=== PATIENT | male | born 1935 | race Caucasian/White ===

== ENCOUNTER 2018-02-27 14:40 | Outpatient (CLI) | payer MEDICARE, OTHER | END 2018-02-27 14:41 | disposition critical access hospital (66) | LOC: EMS 14:40 | PROVIDERS: ATTEND Surgery | DX: R53.1 Weakness (principal); R11.10 Vomiting, unspecified | CPT/HCPCS: A0425; A0427 ==

== ENCOUNTER 2018-02-27 15:00 | Inpatient (IN) | payer MEDICARE, OTHER ==
[2018-02-27 16:06] LABS: BASOPHILS % (AUTO) 0.3 %; EOSINOPHILS % (AUTO) 0.1 %; HGB - HEMOGLOBIN 13.9 g/dL (14.0-18.0); LYMPHOCYTES # (AUTO) 0.4 10^3/uL (1.5-3.5); LYMPHOCYTES % (AUTO) 5.8 %; MEAN CORPUSCULAR HEMOGLOBIN 26.2 pg (27.0-31.0); MEAN CORPUSCULAR HGB CONC 33.4 g/dL (32.0-36.0); MEAN CORPUSCULAR VOLUME 78.4 fL (80.0-94.0); MEAN PLATELET VOLUME 7.4 fL (7.4-11.4); MONOCYTES # (AUTO) 0.9 10^3/uL (0.0-1.0); NEUTROPHILS # (AUTO) 6.1 10^3/uL (1.5-6.6); NEUTROPHILS % (AUTO) 81.8 %; PLT - PLATELET COUNT 422 10^3/uL (130-450); RED BLOOD COUNT 5.32 10^6/uL (4.70-6.10); WHITE BLOOD COUNT 7.5 x10^3/uL (4.8-10.8)
--- NOTE | 2018-02-27 16:10 | ED Physician Documentation ---
History of Present Illness - Stated complaint Stated Complaint: DIZZY WEAK - Chief complaint Chief Complaint: General - History obtained from History obtained from: Patient, Family, Other (records from [facility]) - History of Present Illness Timing: Other (This is an 82-year-old gentleman with history of heart failure and paroxysmal atrial fibrillation on Eliquis. He was hospitalized for 4 days and released on February 22 at [facility] for heart failure and then sounding like acute kidney injury so he was taken off of his diuretics. Over the last 4 days he has been progressively weak with difficulty swallowing his pills, he feels like his throat is not working right and abdominal distention. He also has a cough.) Review of Systems Ten Systems: 10 systems reviewed and negative Constitutional: reports: Fatigue. denies: Fever, Chills Cardiac: reports: Pedal edema. denies: Chest pain / pressure, Palpitations, Calf pain Respiratory: reports: Dyspnea, Cough. denies: Hemoptysis, Wheezing PD PAST MEDICAL HISTORY - Past Medical History Past Medical History: Yes Cardiovascular: None, Congestive heart failure, Hypertension, High cholesterol, Atrial fibrillation Respiratory: Sleep apnea, CPAP use Neuro: None, Other Endocrine/Autoimmune: HyPOthyroidism GI: None : None HEENT: Other Psych: None Musculoskeletal: None Derm: None Other Past Medical History: cataracts - Past Surgical History Past Surgical History: Yes Ortho: Shoulder arthroplasty HEENT: Tonsil/Adenoidectomy - Present Medications Home Medications: Ambulatory Orders Medication Instructions Recorded Confirmed Atorvastatin Calcium [Lipitor] 1 tab PO DAILY 07/25/14 07/25/14 Levothyroxine [Synthroid] 1 tab PO DAILY 07/25/14 07/25/14 Apixaban [Eliquis] 02/27/18 Metoprolol Succinate [Toprol Xl] 02/27/18 Promethazine [Phenergan] 02/27/18 Sennosides/Docusate Sodium [Colace 02/27/18 2-in-1 Tablet] - Allergies Allergies/Adverse Reactions: Allergies Allergy/AdvReac Type Severity Reaction Status Date / Time No Known Drug Allergies Allergy Verified 02/27/18 15:11 - Social History Does the pt smoke?: No Smoking Status: Never smoker Does the pt drink ETOH?: Yes Does the pt have substance abuse?: No PD ED PE NORMAL - Vitals Vital signs reviewed: Yes - General General: Alert and oriented X 3, No acute distress - HEENT HEENT: PERRL, EOMI, Other (He has oral thrush) - Neck Neck: Supple, no meningeal sign, No bony TTP - Cardiac Cardiac: RRR, No murmur - Respiratory Respiratory: No respiratory distress, Clear bilaterally - Abdomen Abdomen: Other (He is distended soft dull abdomen and bedside ultrasound confirms massive ascites.) - Derm Derm: Normal color, Warm and dry - Extremities Extremities: Other (Moderate bilateral pitting pedal edema without tenderness.) - Neuro Neuro: Alert and oriented X 3, Normal speech - Psych Psych: Normal mood, Normal affect Results - Vitals Vitals: Vital Signs - 24 hr 02/27/18 02/27/18 02/27/18 15:07 16:22 18:30 Temperature 36.8 C Heart Rate 87 89 92 Respiratory 23 24 24 Rate Blood Pressure 160/52 H 113/65 115/68 O2 Saturation 95 93 94 Oxygen O2 Source Room air - EKG (time done) 1508 Rate: Rate (enter#) (87) Rhythm: NSR (with PVCs) [place]: Normal Intervals: Normal MI QRS: Normal, Low voltage Ischemia: Normal ST segments Computer interpretation: Agree with computer - Labs Labs: Laboratory Tests 02/27/18 02/27/18 02/27/18 15:28 15:56 15:56 WBC 7.5 RBC 5.32 Hgb 13.9 L Hct 41.7 L MCV 78.4 L MCH 26.2 L MCHC 33.4 RDW 14.0 Plt Count 422 MPV 7.4 Neut # 6.1 Lymph # 0.4 L [place] # 0.9 Eos # 0.0 Baso # 0.0 Absolute Nucleated RBC 0.00 Nucleated RBC % 0.0 Manual Slide Review Indicated WBC Morphology NORMAL APPEARANCE Platelet Estimate NORMAL (130-450,000) Platelet Morphology PLATELET CLUMPING RBC Morph Micro Appear NORMAL APPEARANCE Sodium 127 L Potassium 4.9 Chloride 94 L Carbon Dioxide 20 L Anion Gap 13.0 BUN 50 H Creatinine 1.0 Estimated GFR (MDRD) 71 L Glucose 97 Calcium 10.2 Total Bilirubin 0.7 AST 24 ALT 15 Alkaline Phosphatase 54 Troponin I B-Natriuretic Peptide 33 Total Protein 5.8 L Albumin 3.0 L Globulin 2.8 Albumin/Globulin Ratio 1.1 Lipase 17 L Urine Color Urine Clarity Urine pH Ur Specific Warren Urine Protein Urine Glucose (UA) Urine Ketones Urine Occult Blood Urine Nitrite Urine Bilirubin Urine Urobilinogen Ur Leukocyte Esterase Urine RBC Urine WBC Ur Squamous Epith Cells Urine Bacteria Ur Microscopic Review Fluid Source Fluid Color Fluid Clarity Fluid WBC Fluid RBC Fluid Neutrophils % Fluid Lymphocytes % Fluid Monocytes % Fluid Eosinophils % Fld Mesothelial Cell % Fluid Other Cells % 02/27/18 02/27/18 02/27/18 15:56 16:10 16:55 WBC RBC Hgb Hct MCV MCH MCHC RDW Plt Count MPV Neut # Lymph # [place] # Eos # Baso # Absolute Nucleated RBC Nucleated RBC % Manual Slide Review WBC Morphology Platelet Estimate Platelet Morphology RBC Morph Micro Appear Sodium Potassium Chloride Carbon Dioxide Anion Gap BUN Creatinine Estimated GFR (MDRD) Glucose Calcium Total Bilirubin AST ALT Alkaline Phosphatase Troponin I < 0.04 B-Natriuretic Peptide Total Protein Albumin Globulin Albumin/Globulin Ratio Lipase Urine Color YELLOW Urine Clarity CLEAR Urine pH 6.0 Ur Specific Warren >=1.030 H Urine Protein NEGATIVE Urine Glucose (UA) NEGATIVE Urine Ketones NEGATIVE Urine Occult Blood MODERATE H Urine Nitrite NEGATIVE Urine Bilirubin NEGATIVE Urine Urobilinogen 0.2 (NORMAL) Ur Leukocyte Esterase NEGATIVE Urine RBC 0-5 Urine WBC 0-3 Ur Squamous Epith Cells NONE SEEN Urine Bacteria None Seen Ur Microscopic Review INDICATED Fluid Source PERITONEAL Fluid Color YELLOW Fluid Clarity CLOUDY Fluid WBC 2735 Fluid RBC 64803 Fluid Neutrophils % 0 Fluid Lymphocytes % 16 Fluid Monocytes % 2 Fluid Eosinophils % 1 Fld Mesothelial Cell % 0 Fluid Other Cells % 81 - Rads (name of study) CT A/P Radiology: EMP read contemporaneously (1. There are extensive peritoneal implants with large ascites. There is ill-defined soft tissue density within the upper abdomen, retroperitoneum, pelvis, and presacral region. Findings are consistent with extensive metastatic disease. 2. There are discrete enlarged subcarinal, epicardiac, and retroperitoneal lymph nodes. 3. There is bilateral mild hydronephrosis and hydroureter. This likely reflects some element of ) Procedures - Paracentesis Preparation: Consent obtained, Ultrasound guidance, Sterile prep and drape Location: RLQ Technique: Other (I did not want to do a full therapeutic paracentesis because he is anticoagulated, the right lower quadrant was prepped and he was infiltrated with lidocaine with epinephrine and then using a simply is 18-gauge needle 40 mL of ascitic fluid was aspirated and sent for cytology, cell counts and other studies.) Aftercare: No complications PD MEDICAL DECISION MAKING - ED course ED course: 82-year-old gentleman presents with generalized weakness and shortness of breath , this is just 4 days after discharge from [facility] for presumed CHF with aggressive diuresis. On examination here he does not seem to be in heart failure but he does have significant ascites, this is concerning for metastatic disease. I consider doing a diagnostic/therapeutic paracentesis, but he is therapeutically anticoagulated so a similar approach was done with a small needle to do a diagnostic paracentesis only. CT results as shown and this was shared with the family. I called Dr. Andrade here for admission given that he is generally weak but she wants me to talk to an oncologist first to see if he should be transferred for an aggressive inpatient workup. I spoke with Dr Larry cedillo [place] who did not feel he needed urgent transfer. Departure - Departure Disposition: 66 [facility] DC/Xfer Clinical Impression: Metastatic disease, Weakness, Adequate anticoagulation on anticoagulant therapy Condition: Serious
[2018-02-27] MEDS ORDERED: LIDOCAINE 1%-EPI 1:100000 20 ML MDV SUBQ STA (16:12)
[2018-02-27 16:13] LABS: ALBUMIN/GLOBULIN RATIO 1.1 (1.0-2.2); BILIRUBIN,TOTAL 0.7 mg/dL (0.2-1.0); CALCIUM 10.2 mg/dL (8.5-10.3); TOTAL PROTEIN 5.8 g/dL (6.7-8.2)
[2018-02-27 16:21] LABS: PLATELET ESTIMATE, MANUAL NORMAL (130-450,000) (NORMAL); PLATELET MORPHOLOGY PLATELET CLUMPING (NORMAL); RBC MORPHOLOGY (MULTIPLE) NORMAL APPEARANCE (NORMAL)
[2018-02-27] MEDS ORDERED: IOPAMIDOL-300 100 ML VIAL ONE (16:25)
[2018-02-27 16:26] LABS: BILIRUBIN,URINE NEGATIVE (NEGATIVE); GLUCOSE, URINE (UA) NEGATIVE (NEGATIVE); KETONES,URINE (UA) NEGATIVE (NEGATIVE); LEUKOCYTE ESTERASE, URINE NEGATIVE (NEGATIVE); NITRITE,URINE NEGATIVE (NEGATIVE); OCCULT BLOOD,URINE MODERATE (NEGATIVE); PROTEIN,URINE NEGATIVE (NEGATIVE); UROBILINOGEN,URINE 0.2 (NORMAL) E.U./dL (NORMAL)
--- NOTE | 2018-02-27 16:31 | XRAY Preliminary Report ---
Exam: XR CHEST 1 VIEW X-RAY IMPRESSION: Normal single view chest. [facility] SITE ID: [id number]
--- NOTE | 2018-02-27 16:31 | XRAY Report ---
EXAM: CHEST RADIOGRAPHY EXAM DATE: 02/27/2018 04:07 PM. CLINICAL HISTORY: Dyspnea. COMPARISON: 10/26/2017 chest x-ray. TECHNIQUE: 1 view. FINDINGS: Lungs/Pleura: No focal opacities evident. No pleural effusion. No pneumothorax. Mediastinum: Within exam limitations, the cardiomediastinal contour is normal. Other: None. IMPRESSION: Normal single view chest. [facility] Referring Provider Line: [phone] SITE ID: [id number]
[2018-02-27 16:33] LABS: CLARITY,URINE CLEAR (CLEAR)
[2018-02-27 16:36] LABS: RBC,URINE 0-5 /HPF (0-5); SQUAMOUS EPITHELIAL CELL,UR NONE SEEN (<= Few)
[2018-02-27 16:37] LABS: BACTERIA,URINE None Seen /HPF (None Seen)
--- NOTE | 2018-02-27 17:11 | CT Report ---
EXAM: CT ABDOMEN AND PELVIS EXAM DATE: 02/27/2018 04:51 PM. CLINICAL HISTORY: Abdominal pain COMPARISONS: None. TECHNIQUE: Routine helical CT imaging was performed through the abdomen and pelvis. IV contrast: ISOV UE 300 100mL. Enteric contrast: No. Reconstructions: Coronal and sagittal. In accordance with CT protocol optimization, one or more of the following dose reduction techniques w ere utilized for this exam: automated exposure control, adjustment of mA and/or KV based on patient s ize, or use of iterative reconstructive technique. FINDINGS: Lung Bases: There are enlarged subcarinal and pericardiac lymph nodes. Liver: Normal. No masses. Gallbladder/Bile Ducts: Unremarkable. Spleen: Normal. Pancreas: Normal. Adrenal Glands: Normal. Kidneys: There is bilateral hydronephrosis and urothelial enhancement. There is perinephric stranding . Peritoneal Cavity/Bowel: There is large volume ascites. Uterus thick-walled peripheral enhancement. T here is diffuse nodularity of the mesentery. There is ill-defined confluent retroperitoneal soft tiss ue density which extends into the pelvis. No intraperitoneal free air. No evidence of bowel obstructi on. There is colonic diverticulosis. Pelvic Organs: The urinary bladder demonstrates marked wall thickening. Vasculature: There are atheromatous calcifications of the aorta. No acute vascular abnormalities are seen. Bones: No significant abnormality. Other: None. IMPRESSION: 1. There are extensive peritoneal implants with large ascites. There is ill-defined soft tissue densi ty within the upper abdomen, retroperitoneum, pelvis, and presacral region. Findings are consistent w ith extensive metastatic disease. 2. There are discrete enlarged subcarinal, epicardiac, and retroperitoneal lymph nodes. 3. There is bilateral mild hydronephrosis and hydroureter. This likely reflects some element of obstr uction secondary to the retroperitoneal soft tissue density. 4. There is marked irregular urinary bladder wall thickening. 5. There is no evidence of bowel obstruction. There is colonic diverticulosis. There is no evidence o f intraperitoneal free air. [facility] Referring Provider Line: [phone] SITE ID: [id number]
[2018-02-27 17:21] LABS: BF COLOR YELLOW; BF SOURCE PERITONEAL; CC,BF RBC 10852 /mm^3
[2018-02-27] MEDS ORDERED: IOPAMIDOL-300 100 ML VIAL IVP ONE (17:21)
[2018-02-27] MEDS ORDERED: NYSTATIN 500000 UNITS/5 ML UDC PO STA (17:53)
[2018-02-27 17:55] LABS: EOSINOPHILS %,BODY FLUID 1 %; LYMPHOCYTES %,BODY FLUID 16; MONOCYTES %,BODY FLUID 2 %
[2018-02-27 18:11] LABS: MESOTHELIAL %, BF 0 %
[2018-02-27] MEDS ORDERED: oxyCODONE 5 MG TABLET PO PRN ×2 (19:48)
[2018-02-27] MEDS ORDERED: PROCHLORPERAZINE 10 MG/2 ML VIAL IVP PRN (19:48)
[2018-02-27] MEDS ORDERED: SODIUM CHLORIDE FLUSH 0.9% 10 ML SYRINGE IVP PRN (19:48)
[2018-02-27] MEDS ORDERED: ONDANSETRON 4 MG/2 ML VIAL IVP PRN (19:48)
[2018-02-27] MEDS ORDERED: PROMETHAZINE 25 MG/1 ML VIAL IM PRN (19:48)
[2018-02-27] MEDS ORDERED: ACETAMINOPHEN 325 MG TABLET PO PRN (19:48)
[2018-02-27] MEDS ORDERED: ZOLPIDEM 5 MG TABLET PO PRN (19:48)
[2018-02-27] MEDS: SODIUM CHLORIDE 0.9% 1,000 ML IV SCH (21:48)
--- NOTE | 2018-02-27 23:11 | HISTORY & PHYSICAL EXAMINATION ---
Chief Complaint - Chief Complaint Chief Complaint: Nausea, vomiting and generalized weakness History of Present Illness - Admitted From Admitted From:: Emergency department - History Obtained From Records Reviewed: Yes History obtained from: Patient, patient's and patient's daughter Exam Limitations: Patient is extremely weak barely able to sit up for lung exam - History of Present Illness HPI Comment/Other: Patient is an 82-year-old gentleman with a past medical history significant for congestive heart failure with an ejection fraction of 55%, atrial fibrillation on Eliquis, hypothyroidism, hyperlipidemia, hypertension and history of prostate cancer treated many years ago who presented to the emergency department with a chief complaint of generalized weakness, nausea and vomiting. The patient and his family state that the patient was recently admitted at [facility] from 02/19/2018 until 02/22/2018. The patient presented there with 1 week history of worsening generalized weakness. The family reported to the emergency department that until recently the patient had been very highly functioning and able to do multiple chores around the house and assist with his with several duties. Around September 2017 the patient took a trip to [place] and shortly afterwards was noted to have fatigue and increased weakness. Approximately 2 weeks ago patient fell at home and was taken to the emergency department where several x-rays were completed but found to be negative. The patient was also seen in outpatient cardiology on 02/[address] Ghanshyam Mcdonald and at that appointment he was changed from carvedilol to metoprolol and his dose of spironolactone was decreased. The patient reported swelling of his lower extremities and a feeling of heaviness associated with walking. The patient's family also stated that the patient has had poor appetite and felt as though his food is getting stuck in his throat. He has also noticed that he has had increasing abdominal distention but has not had any abdominal pain. The patient also has had constipation but not noticed any change in the caliber of his stools. He is also denied any blood in his stools. At [facility] the patient was initially treated for volume depletion and given IV hydration. The patient's Lasix and spironolactone were held. The patient was worked up for his constipation and had a normal abdominal x-ray with no evidence of obstruction. The patient had been placed on a bowel regimen and did have a bowel movement prior to being discharged. The patient also appeared to have no nausea or vomiting and was able to tolerate food prior to discharge. The patient was sent home with assistance and outpatient PT. The patient was told to continue to hold his Lasix and spironolactone. After discharge from [facility] just 3 days ago the patient has had a continued decline. According to the family the patient has had increased generalized weakness and lethargy. They state that he continues to have poor appetite and has not been able to keep anything down. They state that he continues to have nausea and has vomited. They also state that the patient has noticed that he has had increased abdominal distention and increasing lower extremity edema. The patient denies having any worsening shortness of breath but feels extremely fatigued and today was so weak that he could not even stand or get up out of bed. The patient's family finally decided to bring him back to the emergency department this time they brought him to [facility]. The patient denies any headaches, blurred vision, runny nose, cough, fevers, chills, chest pain, abdominal pain, diarrhea, urinary urgency, urinary frequency , dysuria, joint pain, muscle aches, joint swelling, back pain, neck stiffness, skin changes, rash, hair loss, polyuria, polydipsia, recent unintentional weight loss, black or bloody stools or any focal neurologic deficits. On presentation to the emergency department the patient was afebrile heart rate was in the high 80s, he was tachypneic but was saturating well on room air. The patient was slightly hypertensive on presentation and looked extremely weak and very fatigued. The patient's initial lab work was remarkable for a sodium of 127, chloride of 94 and a carbon dioxide of 20 with a BUN of 50. The patient 's urine was negative for infection. The patient initially underwent an x-ray of his chest which showed no acute disease. The emergency room physician examined the patient and noted that he had significant abdominal distention and signs of ascites on examination. The patient also had severe lower extremity edema. The emergency room physician ordered a CT of the patient's abdomen and pelvis the CT showed extensive peritoneal implants with large ascites. Ill- defined soft tissue density within the upper abdomen, retroperitoneum, pelvis and presacral region. These findings were consistent with extensive metastatic disease. There was also discrete enlarged subcarinal, epicardiac and retroperitoneal lymph nodes. The patient had bilateral mild hydronephrosis and hydroureter. These findings likely reflect some element of obstruction secondary to retroperitoneal soft tissue density. There was also irregular urinary bladder wall thickening. There was no evidence of bowel obstruction or intraperitoneal free air. The emergency room physician broken used to the patient and his family that he has metastatic cancer. The emergency room physician also performed a paracentesis which showed that the patient had significant WBCs and RBCs with 0% neutrophils and 81% other cells. The fluid was sent for cytology and is expected to be positive for malignancy. Given the patient's severe generalized weakness and dehydration it was determined that the patient would not be able to go home at this time and therefore was placed in observation for hydration, physical therapy and possible placement History - Past Medical History Cardiovascular: reports: None, Congestive heart failure, Hypertension, High cholesterol, Atrial fibrillation Respiratory: reports: Sleep apnea, CPAP use Neuro: reports: None, Other Endocrine/Autoimmune: reports: HyPOthyroidism GI: reports: None : reports: Incontinence HEENT: reports: Other Psych: reports: None Musculoskeletal: reports: None Derm: reports: None MRSA Hx?: No Other Past Medical History: cataracts - Past Surgical History Ortho: reports: Shoulder arthroplasty HEENT: reports: Tonsil/Adenoidectomy - Family & Social History Family History: Mother: , Father: , CAD, Hypertension Living arrangement: At home Living Situation: With spouse/s.o., With family Social History Notes: Patient is originally from [place], he served in the [employer] in the [employer] [facility] for many years. He and his settled here on [facility] in [place]. They have 5 children together. 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 The patient was a former smoker but quit many years ago. The patient does drink socially but denies any illicit drug use. - POLST Patient has POLST: No POLST Status: DNR Meds/Allgy - Home Medications Home Medications: Ambulatory Orders Medication Instructions Recorded Confirmed Atorvastatin Calcium [Lipitor] 1 tab PO DAILY 07/25/14 07/25/14 Levothyroxine [Synthroid] 1 tab PO DAILY 07/25/14 07/25/14 Apixaban [Eliquis] 02/27/18 Metoprolol Succinate [Toprol Xl] 02/27/18 Promethazine [Phenergan] 02/27/18 Sennosides/Docusate Sodium [Colace 02/27/18 2-in-1 Tablet] - Allergies Allergies/Adverse Reactions: Allergies Allergy/AdvReac Type Severity Reaction Status Date / Time No Known Drug Allergies Allergy Verified 02/27/18 15:11 Review of Systems - Other Findings Other Findings: A comprehensive review of systems was performed the pertinent positives and negatives are stated above in the HPI and the remainder of the review of systems is negative. Exam - Vital Signs Reviewed Vital Signs: Yes Vital Signs: Vital Signs x48h Temp Pulse Resp BP Pulse Ox 02/27/18 20:51 36.3 C L 94 18 111/58 L 94 - Physical Exam General Appearance: positive: Alert, Other (The patient appears very weak and is quite drowsy, fatigued. He looks very worn out.) Eyes Bilateral: positive: Normal inspection, PERRL, EOMI, No lid inflammation, Conjunctivae nml, No scleral icterus ENT: positive: ENT inspection nml, Pharynx nml, Dry mucous membranes. negative : Purulent nasal drainage, Pharyngeal erythema, Oral lesions Neck: positive: Nml inspection, Thyroid nml, No JVD, Trachea midline. negative : Lymphadenopathy (R), Lymphadenopathy (L), Stiff neck, Carotid bruit, Tracheal deviation Respiratory: positive: Chest non-tender, No respiratory distress, Breath sounds nml. negative: Wheezes, Rales, Rhonchi Cardiovascular: positive: No murmur, No gallop, Irregularly irregular Peripheral Pulses: positive: 2+ Abdomen: positive: Non-tender, No organomegaly, Nml bowel sounds, Other ( Patient has a distended abdomen with positive fluid wave test). negative: Guarding, Rebound Back: positive: Nml inspection. negative: CVA tenderness (R), CVA tenderness (L ) Skin: positive: Color nml, No rash, Warm, Dry. negative: Cyanosis, Diaphoresis , Pallor, Skin rash Extremities: positive: Non-tender, Full ROM, Nml appearance, Pedal edema ( Bilateral 3+ pitting edema in his lower extremities) Neurologic/Psychiatric: positive: Oriented x3, CN's nml (2-12), Motor nml, Sensation nml, Weakness (Generalized) Conclusion/Plan - Problem List (1) Generalized weakness Conclusion/Plan: The patient's generalized weakness is likely secondary to his metastatic disease which has caused him symptoms of nausea, poor appetite, generalized weakness and due to dehydration from the symptoms he has become increasingly weak and fatigued. He is so weak today that he cannot even stand up without maximum assistance from the bed. At this point he would not be safe to go home and therefore has to be placed in observation for hydration and physical therapy. Plan: Patient will be given IV fluids Patient will be given antiemetics Physical therapy consult (2) Metastatic cancer Conclusion/Plan: The patient has been having increasing generalized weakness, fatigue, poor appetite and nausea for the last several weeks and has been unwell for the last several months. He has had a gradual decline and it appears likely that the malignancy was present from months ago but appears to have rapidly progressed. The patient had significant amount of ascites on examination and had abdominal distention. Therefore CT of the abdomen and pelvis was obtained in the emergency department and showed extensive metastatic disease throughout the abdomen. The source of the patient's cancer is not yet known however the emergency room physician did perform a paracentesis and the fluid was sent for cytology. Regardless of the origin with this kind of extensive metastatic cancer the patient's prognosis is very poor and this was explained to the patient and his family. It was also explained that the patient may not have many options for treatment aside from palliative treatment and/or hospice care. The family does understand this but still wants to see the results of cytology and the patient still wants to see oncology. Plan: Patient will be hydrated and seen by physical therapy we will evaluate if the patient is okay to go home or if he needs rehabilitation. Patient will be given antiemetics for his nausea We will await cytology of the paracentesis fluid The patient will need to be seen by his primary care physician for referral to oncology as soon as possible If the patient is still here on 03/01/2018 then we will get a palliative care consult (3) Hyponatremia Conclusion/Plan: The patient does present with significant hyponatremia his serum sodium is 127. Although the patient does appear edematous he also appears intravascularly depleted. I believe this is likely to be hypovolemic hyponatremia although given the patient's malignancy it could also be secondary to SIADH from a paraneoplastic syndrome. The patient's elevated BUN and low chloride also support the diagnosis of dehydration and therefore hypovolemic hyponatremia. Plan: Patient will be treated with IV fluids We will monitor the patient's sodium (4) Hypertension Conclusion/Plan: The patient has a history of hypertension and on presentation the patient's blood pressure was elevated however it remained stable throughout the stay in the emergency department. At home the patient is on metoprolol and this will be continued while he is hospitalized. Qualifiers: Hypertension type: essential hypertension Qualified Code(s): I10 - Essential (primary) hypertension (5) Hypothyroidism Conclusion/Plan: The patient has a history of hypothyroidism and is on Synthroid 125 mcg at home. The patient's hypothyroidism appears to be stable and he will be continued on his home medication. Qualifiers: Hypothyroidism type: unspecified Qualified Code(s): E03.9 - Hypothyroidism , unspecified (6) Hyperlipidemia Conclusion/Plan: The patient does have a history of hyperlipidemia which also appears to be stable. The patient is on Lipitor at home and this will also be continued. Qualifiers: Hyperlipidemia type: unspecified Qualified Code(s): E78.5 - Hyperlipidemia , unspecified (7) Atrial fibrillation Conclusion/Plan: The patient has chronic atrial fibrillation and is on metoprolol for rate control and Eliquis for anticoagulation. Currently his atrial fibrillation appears to be stable and he will be continued on these medications and we will monitor. Qualifiers: Atrial fibrillation type: chronic Qualified Code(s): I48.2 - Chronic atrial fibrillation - Lab Results Lab results reviewed: Yes Fish Bones: 02/27/18 15:56 02/27/18 15:56 Other Lab Results: Laboratory Results WBC 7.5 x10^3/uL (4.8-10.8) 02/27/18 15:56 RBC 5.32 10^6/uL (4.70-6.10) 02/27/18 15:56 Hgb 13.9 g/dL (14.0-18.0) L 02/27/18 15:56 Hct 41.7 % (42.0-52.0) L 02/27/18 15:56 MCV 78.4 fL (80.0-94.0) L 02/27/18 15:56 MCH 26.2 pg (27.0-31.0) L 02/27/18 15:56 MCHC 33.4 g/dL (32.0-36.0) 02/27/18 15:56 RDW 14.0 % (12.0-15.0) 02/27/18 15:56 Plt Count 422 10^3/uL (130-450) 02/27/18 15:56 MPV 7.4 fL (7.4-11.4) 02/27/18 15:56 Neut # 6.1 10^3/uL (1.5-6.6) 02/27/18 15:56 Lymph # 0.4 10^3/uL (1.5-3.5) L 02/27/18 15:56 [place] # 0.9 10^3/uL (0.0-1.0) 02/27/18 15:56 Eos # 0.0 10^3/uL (0.0-0.7) 02/27/18 15:56 Baso # 0.0 10^3/uL (0.0-0.1) 02/27/18 15:56 Absolute Nucleated RBC 0.00 x10^3/uL 02/27/18 15:56 Nucleated RBC % 0.0 /100WBC 02/27/18 15:56 Manual Slide Review Indicated 02/27/18 15:56 WBC Morphology NORMAL APPEARANCE (NORMAL) 02/27/18 15:56 Platelet Estimate NORMAL (130-450,000) (NORMAL) 02/27/18 15:56 Platelet Morphology PLATELET CLUMPING (NORMAL) 02/27/18 15:56 RBC Morph Micro Appear NORMAL APPEARANCE (NORMAL) 02/27/18 15:56 Sodium 127 mmol/L (135-145) L 02/27/18 15:56 Potassium 4.9 mmol/L (3.5-5.0) 02/27/18 15:56 Chloride 94 mmol/L (101-111) L 02/27/18 15:56 Carbon Dioxide 20 mmol/L (21-32) L 02/27/18 15:56 Anion Gap 13.0 (6-13) 02/27/18 15:56 BUN 50 mg/dL (6-20) H 02/27/18 15:56 Creatinine 1.0 mg/dL (0.6-1.2) 02/27/18 15:56 Estimated GFR (MDRD) 71 (>89) L 02/27/18 15:56 Glucose 97 mg/dL (70-100) 02/27/18 15:56 Calcium 10.2 mg/dL (8.5-10.3) 02/27/18 15:56 Total Bilirubin 0.7 mg/dL (0.2-1.0) 02/27/18 15:56 AST 24 IU/L (10-42) 02/27/18 15:56 ALT 15 IU/L (10-60) 02/27/18 15:56 Alkaline Phosphatase 54 IU/L (42-121) 02/27/18 15:56 Troponin I < 0.04 ng/mL (<0.49) 02/27/18 15:56 B-Natriuretic Peptide 33 pg/mL (5-100) 02/27/18 15:28 Total Protein 5.8 g/dL (6.7-8.2) L 02/27/18 15:56 Albumin 3.0 g/dL (3.2-5.5) L 02/27/18 15:56 Globulin 2.8 g/dL (2.1-4.2) 02/27/18 15:56 Albumin/Globulin Ratio 1.1 (1.0-2.2) 02/27/18 15:56 Lipase 17 U/L (22-51) L 02/27/18 15:56 Urine Color YELLOW 02/27/18 16:10 Urine Clarity CLEAR (CLEAR) 02/27/18 16:10 Urine pH 6.0 PH (5.0-7.5) 02/27/18 16:10 Ur Specific [place] >=1.030 (1.002-1.030) H 02/27/18 16:10 Urine Protein NEGATIVE mg/dL (NEGATIVE) 02/27/18 16:10 Urine Glucose (UA) NEGATIVE mg/dL (NEGATIVE) 02/27/18 16:10 Urine Ketones NEGATIVE mg/dL (NEGATIVE) 02/27/18 16:10 Urine Occult Blood MODERATE (NEGATIVE) H 02/27/18 16:10 Urine Nitrite NEGATIVE (NEGATIVE) 02/27/18 16:10 Urine Bilirubin NEGATIVE (NEGATIVE) 02/27/18 16:10 Urine Urobilinogen 0.2 (NORMAL) E.U./dL (NORMAL) 02/27/18 16:10 Ur Leukocyte Esterase NEGATIVE (NEGATIVE) 02/27/18 16:10 Urine RBC 0-5 /HPF (0-5) 02/27/18 16:10 Urine WBC 0-3 /HPF (0-3) 02/27/18 16:10 Ur Squamous Epith Cells NONE SEEN (<= Few) 02/27/18 16:10 Urine Bacteria None Seen /HPF (None Seen) 02/27/18 16:10 Ur Microscopic Review INDICATED 02/27/18 16:10 Fluid Source PERITONEAL 02/27/18 16:55 Fluid Color YELLOW 02/27/18 16:55 Fluid Clarity CLOUDY 02/27/18 16:55 Fluid WBC 2735 /mm^3 02/27/18 16:55 Fluid RBC 85999 /mm^3 02/27/18 16:55 Fluid Neutrophils % 0 % 02/27/18 16:55 Fluid Lymphocytes % 16 02/27/18 16:55 Fluid Monocytes % 2 % 02/27/18 16:55 Fluid Eosinophils % 1 % 02/27/18 16:55 Fld Mesothelial Cell % 0 % 02/27/18 16:55 Fluid Other Cells % 81 % 02/27/18 16:55 - Diagnostic Imaging Results Diagnostic Imaging Results: positive: Final report reviewed Diagnostic Imaging Results Comments: EXAM: [id number] CT/ABPEW ([id number]) EXAM: CT ABDOMEN AND PELVIS EXAM DATE: 02/27/2018 04:51 PM. CLINICAL HISTORY: Abdominal pain COMPARISONS: None. TECHNIQUE: Routine helical CT imaging was performed through the abdomen and pelvis. IV contrast: ISOVUE 300 100mL. Enteric contrast: No. Reconstructions: Coronal and sagittal. In accordance with CT protocol optimization, one or more of the following dose reduction techniques were utilized for this exam: automated exposure control, adjustment of mA and/or KV based on patient size, or use of iterative reconstructive technique. FINDINGS: Lung Bases: There are enlarged subcarinal and pericardiac lymph nodes. Liver: Normal. No masses. Gallbladder/Bile Ducts: Unremarkable. Spleen: Normal. Pancreas: Normal. Adrenal Glands: Normal. Kidneys: There is bilateral hydronephrosis and urothelial enhancement. There is perinephric stranding. Peritoneal Cavity/Bowel: There is large volume ascites. Uterus thick-walled peripheral enhancement. There is diffuse nodularity of the mesentery. There is ill-defined confluent retroperitoneal soft tissue density which extends into the pelvis. No intraperitoneal free air. No evidence of bowel obstruction. There is colonic diverticulosis. Pelvic Organs: The urinary bladder demonstrates marked wall thickening. Vasculature: There are atheromatous calcifications of the aorta. No acute vascular abnormalities are seen. Bones: No significant abnormality. Other: None. IMPRESSION: 1. There are extensive peritoneal implants with large ascites. There is ill- defined soft tissue density within the upper abdomen, retroperitoneum, pelvis, and presacral region. Findings are consistent with extensive metastatic disease. 2. There are discrete enlarged subcarinal, epicardiac, and retroperitoneal lymph nodes. 3. There is bilateral mild hydronephrosis and hydroureter. This likely reflects some element of obstruction secondary to the retroperitoneal soft tissue density. 4. There is marked irregular urinary bladder wall thickening. 5. There is no evidence of bowel obstruction. There is colonic diverticulosis. There is no evidence of intraperitoneal free air. EXAM: [id number] ([id number]) EXAM: CHEST RADIOGRAPHY EXAM DATE: 02/27/2018 04:07 PM. CLINICAL HISTORY: Dyspnea. COMPARISON: 10/26/2017 chest x-ray. TECHNIQUE: 1 view. FINDINGS: Lungs/Pleura: No focal opacities evident. No pleural effusion. No pneumothorax. Mediastinum: Within exam limitations, the cardiomediastinal contour is normal. Other: None. IMPRESSION: Normal single view chest. Core Measures - Anticipated LOS I expect patient to be DC'd or transferred within 96 hours.: Yes - DVT/VTE - Prophylaxis VTE/DVT Device ordered at admit?: Yes
[2018-02-28] MEDS: SODIUM CHLORIDE FLUSH 0.9% 10 ML SYRINGE IVP SCH ×3 (01:05→16:05)
[2018-02-28 06:40] LABS: BASOPHILS % (AUTO) 0.3 %; EOSINOPHILS % (AUTO) 0.1 %; HGB - HEMOGLOBIN 13.6 g/dL (14.0-18.0); LYMPHOCYTES # (AUTO) 0.4 10^3/uL (1.5-3.5); LYMPHOCYTES % (AUTO) 4.9 %; MEAN CORPUSCULAR HEMOGLOBIN 25.7 pg (27.0-31.0); MEAN CORPUSCULAR HGB CONC 32.4 g/dL (32.0-36.0); MEAN CORPUSCULAR VOLUME 79.4 fL (80.0-94.0); MEAN PLATELET VOLUME 7.5 fL (7.4-11.4); MONOCYTES # (AUTO) 0.9 10^3/uL (0.0-1.0); MONOCYTES % (AUTO) 11.1 %; NEUTROPHILS # (AUTO) 6.5 10^3/uL (1.5-6.6); NEUTROPHILS % (AUTO) 83.6 %; PLT - PLATELET COUNT 485 10^3/uL (130-450); RED BLOOD COUNT 5.31 10^6/uL (4.70-6.10); RED CELL DISTRIBUTION WIDTH 14.4 % (12.0-15.0); WHITE BLOOD COUNT 7.8 x10^3/uL (4.8-10.8)
[2018-02-28 06:46] LABS: ALBUMIN 2.7 g/dL (3.2-5.5); ALBUMIN/GLOBULIN RATIO 1.1 (1.0-2.2); BILIRUBIN,TOTAL 1.1 mg/dL (0.2-1.0); CALCIUM 9.7 mg/dL (8.5-10.3); MAGNESIUM 2.6 mg/dL (1.7-2.8); PHOSPHORUS 3.5 mg/dL (2.5-4.6); TOTAL PROTEIN 5.2 g/dL (6.7-8.2)
[2018-02-28 06:50] LABS: INR 1.2 (0.8-1.2); PT - PROTHROMBIN TIME 13.9 secs (9.9-12.6)
[2018-02-28] MEDS: SODIUM CHLORIDE 0.9% 1,000 ML IV SCH (07:45)
[2018-02-28] MEDS: ATORVASTATIN 10 MG TABLET PO SCH (08:18)
[2018-02-28] MEDS: FAMOTIDINE 20 MG TABLET PO SCH (08:19)
[2018-02-28] MEDS: POLYETHYLENE GLYCOL 3350 17 GM PACKET PO SCH (08:27)
[2018-02-28] MEDS ORDERED: LEVOTHYROXINE 125 MCG TABLET PO SCH (09:00)
[2018-02-28] MEDS ORDERED: DEXTROSE 5%-0.9% NACL 1,000 ML IV ONE (14:32)
--- NOTE | 2018-02-28 15:28 | PROVIDER PROGRESS NOTE ---
Subjective - Prog Note Date Prog Note Date: 02/28/18 - Subjective Pt reports feeling: Worse Subjective: Unable to keep oral intake, weak and nauseous. Continues with abdominal discomfort. Has sweats and feels hot. Does not wish to pursue diagnosis and would not agree to chemotherapy. Patient and family (, daughter at the bedside) feel that patient lived a happy and functional life; his decline started recently, was rapid and the limitation from his illness is not acceptable for him; life quality and dying with dignity are priority. Objective - Vital Signs/Intake & Output Vital Signs: Vital Signs x48h Temp Pulse Resp BP Pulse Ox 02/28/18 11:47 36.3 C L 104 H 16 117/63 91 L 02/28/18 07:41 36.3 C L 50 L 17 126/58 L 96 Intake & Output: Intake & Output 02/25/18 02/26/18 02/27/18 02/28/18 23:59 23:59 23:59 23:59 Intake Total 2115 Output Total 150 350 Balance -150 1765 - Objective General Appearance: positive: No acute distress, Other (Ill appearing, uncomfortable looking. Grimaces when abdomen touched.) Respiratory: positive: Other (Increased work of breathing.) Cardiovascular: positive: Regular rate & rhythm Abdomen: positive: Other (Distended, hard, tender. Bowel tones present.) Extremities: positive: Pedal edema Neurologic/Psychiatric: positive: Oriented x3, Depressed mood/affect - Lab Results Fish Bones: 02/28/18 06:23 02/28/18 06:23 Other Labs: Lab Results x24hrs 02/28/18 02/28/18 02/28/18 Range/Units 06:23 06:23 06:23 WBC (4.8-10.8) x10^3/uL RBC (4.70-6.10) 10^6/uL Hgb (14.0-18.0) g/dL Hct (42.0-52.0) % MCV (80.0-94.0) fL MCH (27.0-31.0) pg MCHC (32.0-36.0) g/dL RDW (12.0-15.0) % Plt Count (130-450) 10^3/uL MPV (7.4-11.4) fL Neut # (1.5-6.6) 10^3/uL Lymph # (1.5-3.5) 10^3/uL Dubois # (0.0-1.0) 10^3/uL Eos # (0.0-0.7) 10^3/uL Baso # (0.0-0.1) 10^3/uL Absolute Nucleated RBC x10^3/uL Nucleated RBC % /100WBC PT 13.9 H (9.9-12.6) secs INR 1.2 (0.8-1.2) Sodium 129 L (135-145) mmol/L Potassium 4.7 (3.5-5.0) mmol/L Chloride 98 L (101-111) mmol/L Carbon Dioxide 20 L (21-32) mmol/L Anion Gap 11.0 (6-13) BUN 43 H (6-20) mg/dL Creatinine 1.0 (0.6-1.2) mg/dL Estimated GFR (MDRD) 71 L (>89) Glucose 83 (70-100) mg/dL Lactic Acid 3.1 H* (0.5-2.2) mmol/L Calcium 9.7 (8.5-10.3) mg/dL Phosphorus 3.5 (2.5-4.6) mg/dL Magnesium 2.6 (1.7-2.8) mg/dL Total Bilirubin 1.1 H (0.2-1.0) mg/dL AST 23 (10-42) IU/L ALT 16 (10-60) IU/L Alkaline Phosphatase 47 (42-121) IU/L Total Protein 5.2 L (6.7-8.2) g/dL Albumin 2.7 L (3.2-5.5) g/dL Globulin 2.5 (2.1-4.2) g/dL Albumin/Globulin Ratio 1.1 (1.0-2.2) 02/28/18 Range/Units 06:23 WBC 7.8 (4.8-10.8) x10^3/uL RBC 5.31 (4.70-6.10) 10^6/uL Hgb 13.6 L (14.0-18.0) g/dL Hct 42.1 (42.0-52.0) % MCV 79.4 L (80.0-94.0) fL MCH 25.7 L (27.0-31.0) pg MCHC 32.4 (32.0-36.0) g/dL RDW 14.4 (12.0-15.0) % Plt Count 485 H (130-450) 10^3/uL MPV 7.5 (7.4-11.4) fL Neut # 6.5 (1.5-6.6) 10^3/uL Lymph # 0.4 L (1.5-3.5) 10^3/uL Dubois # 0.9 (0.0-1.0) 10^3/uL Eos # 0.0 (0.0-0.7) 10^3/uL Baso # 0.0 (0.0-0.1) 10^3/uL Absolute Nucleated RBC 0.00 x10^3/uL Nucleated RBC % 0.0 /100WBC PT (9.9-12.6) secs INR (0.8-1.2) Sodium (135-145) mmol/L Potassium (3.5-5.0) mmol/L Chloride (101-111) mmol/L Carbon Dioxide (21-32) mmol/L Anion Gap (6-13) BUN (6-20) mg/dL Creatinine (0.6-1.2) mg/dL Estimated GFR (MDRD) (>89) Glucose (70-100) mg/dL Lactic Acid (0.5-2.2) mmol/L Calcium (8.5-10.3) mg/dL Phosphorus (2.5-4.6) mg/dL Magnesium (1.7-2.8) mg/dL Total Bilirubin (0.2-1.0) mg/dL AST (10-42) IU/L ALT (10-60) IU/L Alkaline Phosphatase (42-121) IU/L Total Protein (6.7-8.2) g/dL Albumin (3.2-5.5) g/dL Globulin (2.1-4.2) g/dL Albumin/Globulin Ratio (1.0-2.2) Assessment/Plan - Problem List (1) Generalized weakness Impression: MULTIFACTORIAL: 1. New diagnosis of ascites. 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 Ascites cytology sent from ER/pending. No tissue diagnosis available yet, but the patient seems firm with his decision not wanting to pursue work up, tissue diagnosis (if cytology yields no definite diagnosis). He wishes DNR/DNI status and is interested in palliative care eval. would like to take him home with hospice after discussing with other family members. This is a new and shocking diagnosis for them therefore they not yet decided on comfort care and would rediscuss tomorrow whether further workup or oncology follow up would be something they considered. Both options were discussed; ie comfor care versus further workup and oncology evaluation. PLAN: continue supportive care, consult hospice and palliative care; continue discussions regarding goals and d/c planning. Code status changed DNR/DNI. 2. Lactic acidosis, sweats, acsites, weakness, Temp 37C: Consider SBP, started Ceftriaxone empirically. 3. Dehydration/ interstitial overload and intravascular depletion. Hyponatremia. Continue gentle IV hydation. 4. Uncontrolled pain, inability to ambulate, self care deficit, unable to keep oral intake. Upgraded to inpatient.
[2018-02-28] MEDS: cefTRIAXone 1 GM in SODIUM CHLORIDE 0.9% MINIBAG 100 ML IV SCH (16:05)
[2018-02-28] MEDS: LATANOPROST 0.005% OPHTH DROPS EACHEYE SCH (19:56)
[2018-02-28] MEDS ORDERED: MIN OIL/DIMETHICON/COCONUT OIL 92 GM TUBE TOP PRN (20:09)
[2018-03-01] MEDS: SODIUM CHLORIDE FLUSH 0.9% 10 ML SYRINGE IVP SCH ×3 (06:29→16:56)
[2018-03-01] MEDS ORDERED: LEVOTHYROXINE 125 MCG TABLET PO SCH (07:00)
[2018-03-01] MEDS ORDERED: METOPROLOL SUCCINATE 50 MG TABLET PO SCH (09:00)
[2018-03-01] MEDS: FAMOTIDINE 20 MG TABLET PO SCH (10:29)
[2018-03-01] MEDS: cefTRIAXone 1 GM in SODIUM CHLORIDE 0.9% MINIBAG 100 ML IV SCH (10:29)
[2018-03-01] MEDS: ATORVASTATIN 10 MG TABLET PO SCH (10:29)
[2018-03-01] MEDS: POLYETHYLENE GLYCOL 3350 17 GM PACKET PO SCH (10:30)
[2018-03-01] MEDS ORDERED: MORPHINE SOL 10 MG/0.5 ML SYRINGE PO PRN (12:30)
[2018-03-01] MEDS ORDERED: LORazepam 0.5 MG TABLET SL PRN (12:31)
[2018-03-01 16:09] VITALS: BP 109/69
--- NOTE | 2018-03-01 16:09 | PROVIDER PROGRESS NOTE ---
Subjective - Prog Note Date Prog Note Date: 03/01/18 - Subjective Pt reports feeling: Worse (lethargic, no longer able to take oral intake, tachycardic but denies pain.) Objective - Vital Signs/Intake & Output Vital Signs: Vital Signs x48h Temp Pulse Resp BP Pulse Ox 03/01/18 08:00 36.3 C L 122 H 18 134/80 H 95 Intake & Output: Intake & Output 02/26/18 02/27/18 02/28/18 03/01/18 23:59 23:59 23:59 23:59 Intake Total 479 921 Balance 479 921 - Objective General Appearance: positive: Mild distress, Other (tachycardic, tachypneic appears uncomfortable.) Respiratory: positive: Other (episodes of labored breathing) Abdomen: positive: Other (distended, tender.) Neurologic/Psychiatric: positive: Other (lethargic, global encephalopathy without focal lateralizing sign) - Lab Results Fish Bones: 02/28/18 06:23 02/28/18 06:23 Assessment/Plan - Problem List (1) Generalized weakness Impression: 1. New diagnosis of ascites. 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 Ascites cytology sent from ER/pending. No tissue diagnosis available yet, but the patient was firm with his decision not wanting to pursue work up, tissue diagnosis (if cytology yields no definite diagnosis). He wanted comfort care. would like to take him home with hospice after discussing with other family members. This is a new and shocking diagnosis for them; we had a family meeting today and I updated the family on the work up/ diagnosis and we discussed all available options. They also met with hospice; patient was accepted under hospice and the plan is to d/c home on 03/02 with home hospice. The patient's condition has been steadily declining in the past 24hrs and the family is aware that he might not survive to be taken home tomorrow. Diagnoses: CHF Lactic acidosis Dehydration/ interstitial overload and intravascular depletion Hyponatremia Encephalopathy Terminal illness/ Might be entering the phase of active dying. PLAN: continue symptom control. D/c all unnecessary meds; patient is no longer taking oral intake. No IVF ordered considering the risk of overloading circulation without survival benefit. Discussed with family the transition phase of terminal illness/active dying and the natural process of reducing and stopping oral intake. Of note, ABX and IV hydration were given up to this morning. Regardless of improvement of hyponatremia patient continues to decline. Comfort care.
--- NOTE | 2018-03-01 18:22 | CONSULTATION NOTE ---
Palliative Care Consultation - Referral Referring Provider: Dr. Donna Andrade Time of Visit: [id number]; [id number] Referral setting: Hospitalized patient Referral Reason: Metastatic Dx Unknown Primary / Goals of Care - Information Sources Records reviewed: RN notes reviewed, Previous records reviewed History/Review of Systems obtained from: Family (report from hospitalist; clinical staff; family) Exam limitations: Clinical condition (patient lethargic; able to nod only in response to questions on exam) - History of Present Illness Brief History of Present Illness: This is a vika 82-year-old gentleman who most recently was hospitalized at [facility] 02/22 with the episode of acute on chronic heart failure, hyponatremia, and constipation. He does have a known echo on 01/28 that showed 55% of LVEF. He also has underlying atrial fibrillation on Eliquis, hypothyroidism, hypertension, and a history of prostate cancer many years ago. He has had some weakness and fatigue, but was mostly at baseline, though he did have a fall 2 weeks ago. He did have abdominal x-rays done at [facility], did not show any masses or obstructive symptoms at that point in time. He continued to progressively get weak over this last week, increased difficulty with swallowing , and on presentation to the emergency room a CT of abdomen and pelvis was ordered given the patient has significant abdominal distention and signs of ascites. The CT scan did show extensive peritoneal implants with large ascites , and ill-defined soft tissue density within the upper abdomen, retroperitoneum , pelvis, and presacral region. The findings are shown to be consistent with extensive metastatic disease. He also had bilateral mild hydronephrosis and hydroureter, showing some element of obstruction. It did not show any evidence of bowel obstruction at this point in time. This was shared with the family, they did do a paracentesis with cytology still pending. The patient has continued to actively transition, he is quite tacky, has not been able to eat or swallow, is more lethargic, and increased difficulty communicating. Am seeing the patient and family, to discuss transition possibly to hospice. Patient unable to participate, though when asked at the end of my visit, he was emphatically nodding yes to go home. Medical/Surgical History - Past Medical History Cardiovascular: reports: None, Congestive heart failure, Hypertension, High cholesterol, Atrial fibrillation Respiratory: reports: Sleep apnea, CPAP use Neuro: reports: None, Other Endocrine/Autoimmune: reports: HyPOthyroidism GI: reports: None, Chronic constipation : reports: Incontinence Psych: reports: None Musculoskeletal: reports: None Derm: reports: None MRSA Hx?: No Other Past Medical History: cataracts - Past Surgical History Ortho: reports: Shoulder arthroplasty HEENT: reports: Tonsil/Adenoidectomy - Substance History Dependence: Experiences withdrawal or developed tolerances: NONE Social History - Living Situation Living arrangement: At home Living Situation: With spouse/s.o. (Patient and his are coming up on 50 years of being , he has a daughter and a son from a previous marriage, her both at the bedside. He has 3 other daughters, 2 are expected, and one is in [place]. He has been a very active involved man up to this point, he is a , who was in [place], and he is of [employer] is[employer].) Family History - Family History Family History: Mother: , Father: Medications/Allergies - Medications Active Medication List: Active Medications Acetaminophen (Tylenol) 650 mg PO Q4HR PRN PRN Reason: Pain 1 to 4 Latanoprost (Xalatan Ophth Drops) 1 drops EACHEYE QPM [facility] Last Admin: 02/28/18 19:56 Dose: 1 drops Lorazepam (Ativan) 0.5 mg SL Q6H PRN PRN Reason: Anxiety Mineral Oil (Cavilon) 1 applic TOP PRN PRN PRN Reason: Skin Care Morphine Sulfate (Roxanol) 5 mg PO Q2HR PRN PRN Reason: PAIN Ondansetron HCl (Zofran Inj) 4 mg IVP Q6HR PRN PRN Reason: Nausea / Vomiting Prochlorperazine Edisylate (Compazine Inj) 10 mg IVP Q6HR PRN PRN Reason: Nausea / Vomiting Sodium Chloride (Normal Saline Flush 0.9%) 10 ml IVP PRN PRN PRN Reason: NEEDED PER PROVIDER ORDERS Sodium Chloride (Normal Saline Flush 0.9%) 10 ml IVP 0100,0900,1700 [facility] Last Admin: 03/01/18 16:56 Dose: Not Given Metoprolol Succinate [Toprol Xl] 50 mg PO DAILY 02/27/18 Apixaban [Eliquis] 5 mg PO BID 02/28/18 Furosemide [Furosemide] 80 mg PO BIDDIURETIC 02/28/18 Latanoprost [Latanoprost] 1 drops EACHEYE QPM 02/28/18 Levothyroxine [Synthroid] 125 mcg PO QDAC 02/28/18 Potassium Chloride [Klor-Con M20] 20 meq PO TIDWM 02/28/18 Spironolactone [Aldactone] 50 mg PO DAILY 02/28/18 - Allergies Allergies/Adverse Reactions: Allergies Allergy/AdvReac Type Severity Reaction Status Date / Time No Known Drug Allergies Allergy Verified 02/27/18 15:11 Review of Systems - Constitutional Constitutional: reports: Weight loss, Other - Eyes Eyes: reports: Other - Ears, Nose & Throat Ears, Nose & Throat: reports: Hoarseness (reports has had voice changes for a couple of weeks now), Other (increase difficulty with swallowing; reports had thrush prior) - Cardiovascular Cardiovascular: reports: Irregular heart rate - Respiratory Respiratory: reports: SOB at rest (appears to have respiratory effort at rest;) , SOB with exertion - Gastrointestinal Gastrointestinal: reports: Abdominal distention, Nausea (per family), Poor appetite (eating small amounts at home since discharge [facility]) - Genitourinary Genitourinary: reports: Incontinence - Musculoskeletal Musculoskeletal: reports: Stiffness, Muscle weakness (bedbound and weak since arrival) - Integumentary Integumentary: reports: Dryness - Neurological Neurological: reports: Other (pushing people away; nodding in response to questions) - Psychiatric Psychiatric: reports: Aggitation - Endocrine Endocrine: reports: Hypothyroidism - All Other Systems All Other Systems: reports: Reviewed and negative Physical Exam - Vital Signs Vital Signs: Vital Signs x48h Temp Pulse Resp BP Pulse Ox 03/01/18 16:07 36.8 C 113 H 20 109/69 94 - Physical Exam General Appearance: positive: Moderate distress, Lethargic Eyes Bilateral: positive: Other (eyes sunken; difficulty focusing) ENT: positive: Dry mucous membranes, Other (no thrush but bright pink;) Neck: positive: Trachea midline Cardiovascular: positive: Irregular, Tachycardia Respiratory: positive: Diminished in bases. negative: Wheezes, Rales, Rhonchi Abdomen: positive: Abnml bowel sounds (hypoactive), Tenderness, Distended Skin: positive: Dryness Extremities: positive: No pedal edema Neurologic/Psychiatric: positive: Weakness Palliative Care - POLST Patient has POLST: No POLST Status: DNR (will need POLST tomorrow for transfer if discharges;) Pain: Location (patient denies pain; though does not appear comfortable; grimacing with exam) Tiredness/Fatigue: Severe (7-10) Drowsiness/Sedation: Severe (7-10) Performance Status: Family meeting with Colette, oldest daughter Jennifer, and friend Ekta. Ekta is a nurse by training and good friend. expressing feelings of "numbness" , is trying to understand the seriousness of the situation, reports her is a dignified man, has been a , and "told me he wanted no treatment". Shared patient had signed out AMA at [facility], is wanting to go home. Did spend time processing just their experience over the last 24 hours, the shock of the diagnosis, the delivery of the news, and just now the uncertainty of the even his underlying diagnosis. They do recognize that he is transitioning quite quickly, time was spent counseling regarding the continuum of care, end-of-life signs and symptoms, as well as hospice benefit and support. Given the unexpected diagnosis, they have been revealing as far as trying to get the information out to their family, Jennifer is here presently, she is oldest daughter and spent the night. She is concerned about the level of discomfort he is experiencing. Her brother Barrington, is expected at any point, at that point in time they would like to meet with the hospitalist to just go over his medical condition. They are trying to contact the other daughter Shivani, who are in the area, hoping that they can come sooner in the next 24-48 hrs. The last daughter Lexi is in [place], that she was up here last week visiting , she has been ill with a cold and has little ones as well. It is unknown if she is going to be able to come. Given who he is, and the severity of his illness, and his statements about his satisfaction with his life thus far, they are leaning towards taking him home to meet his wishes. Results - Lab Results Lab results reviewed: Yes Octavio Bones: 02/28/18 06:23 02/28/18 06:23 Impression and Recommendations - Palliative Care Impression: This is an unfortunate 82-year-old gentleman who presents with metastatic disease, ascites, progressive functional decline, unable to swallow, and somewhat high symptom burden. Family is still in shock, is trying to process his imminent decline, but also wanting to honor his wishes in trying to transition him home. Palliative care meeting with family to discuss end-of- life wishes and hospice benefit Recommendations/Counseling Done: 1. 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 These all present as poor prognostic indicators, on the palliative care performance scale he is at 10% this usually translates to hours to days. Family goal is to have him at home to , facilitate transition to hospice. 2. Discomfort. Patient denies identifiable pain, the patient does present with burrowing, difficulty and pain behaviors with turning or movement, and distended abdomen. Given patient's minimal oral intake, would recommend morphine sulfate 20 mg per male, 5 mg every 2 hours as needed for any signs or symptoms of discomfort, or respiratory distress. He is opioid stalin this could be an appropriate starting point, and will allow transition to hospice. Would also recommend Lorazepam 0.5 mg weekly every 4-6 hours for any signs of anxiety or agitation. Family's goal is to relieve suffering, and focus on comfort. 3. Advanced care planning. Family conference with hospitalist pending, though at this point the agreement was to move forward with hospice referral, hospice entrance attendant Monet Govea RN, Contacted for pending hospice referral. She will contact for equipment set up, contact number was provided for both Colette at [phone], as well as Jennifer oldest daughter, . They do have an opening for tomorrow afternoon, will need ambulance transport. They are aware patient may transition more quickly, did report patient would " be okay" when she asked him if he in the hospital. Made arrangements for Dr. Amarjit Zuleta hospice medical office specialist, to follow-up first thing in the morning, to proceed with hospice discharge and or determine if patient eminently dying. Also contact was made with father Hakeem at the request of the family, he is making arrangements, if he is unable to come tonight or find father Amarjit, he will be there tomorrow to provide last writes this this was important to the family. Provided hard choices for loving people to Jennifer, if patient is discharging home will have hospice liaison follow-up on [address] for transfer. Thank you Dr. Andrade for asking the palliative care consult service to be involved in the care of your patient. Time Spent: 60 minutes with greater than 50% of this done in counseling and family conference regarding anticipatory guidance, end-of-life transitioning, and hospice referral.
[2018-03-02] MEDS: LATANOPROST 0.005% OPHTH DROPS EACHEYE SCH (00:54)
[2018-03-02] MEDS: SODIUM CHLORIDE FLUSH 0.9% 10 ML SYRINGE IVP SCH ×2 (00:55→11:19)
--- NOTE | 2018-03-02 10:46 | Discharge Plan ---
Discharge Plan Disposition: 01 Home, Self Care Condition: Poor Diet: Regular Activity Restrictions: Activity as Tolerated Shower Restrictions: No Driving Restrictions: Yes (Pt is too weak to drive) Assistance Devices: Wheelchair Weight Bearing: Partial Weight No Smoking: If you smoke, Please STOP! Call for help. Follow-up with: Chet Guerrero MD [Primary Care Provider] -
--- NOTE | 2018-03-02 12:08 | ADVANCE CARE PLANNING NOTE ---
Advance Care Planning - Date/Time Date: 03/02/18 Time: 10:15 - Purpose of encounter Text: Advanced care planning and directives - Parties in attendance Parties in attendance: Patient's , Miesha Moody, and 2 daughters - Decisional capacity Decisional capacity of: The patient's decisional capacity is compromised at this time. He is lethargic - Objective/Medical story Objective/Medical Story: The patient has a history of steady decline over the last several months with several hospitalizations. He was discovered to have widespread abdominal metastasis during this hospitalization. He has elected for hospice services. - Goals of Care Goals of care determinations: Comfort measures only. The patient does not wish to be resuscitated. - Plan Plan: A POLST form has been filled out. Hospice services will be started this afternoon at home. - Code Status Code Status: Do Not Attempt Resuscitation - Time Spent on Advance Care Planning Time spent on advance care plannin
--- NOTE | 2018-03-02 12:12 | DISCHARGE SUMMARY ---
Discharge Summary Admit Date: 02/27/18 Discharge Date: 03/02/18 Discharging Provider: Tanja Spear DO Primary Care Provider: Chet Claire Condition at Discharge: Poor Discharge Disposition: 01 Home, Self Care - DIAGNOSES Admission Diagnoses: 1) Stage IV cancer, unknown primary, with widespread carcinomatosis 2) Past medical history of hyperlipidemia, hypothyroidism, atrial fibrillation, hypertension, and congestive heart failure. Discharge Diagnoses with Status of Each Condition: 1) Stage IV cancer, unknown primary, with widespread carcinomatosis- The patient has requested DO NOT RESUSCITATE status and hospice services. He will be discharged home today and will be admitted to hospice services this afternoon. The durable medical equipment has been sent to the home already. The patient stopped eating about a week ago, and is declining fairly rapidly at this time. He has not complained of any pain or showing any signs of any pain or discomfort at this time. 2) Past medical history of hyperlipidemia, hypothyroidism, atrial fibrillation, hypertension, and congestive heart failure. The patient's home medications have been minimized. Continue present care. - HPI History of Present Illness: From Dr. Thompson's history and physical: Patient is an 82-year-old gentleman with a past medical history significant for congestive heart failure with an ejection fraction of 55%, atrial fibrillation on Eliquis, hypothyroidism, hyperlipidemia, hypertension and history of prostate cancer treated many years ago who presented to the emergency department with a chief complaint of generalized weakness, nausea and vomiting. The patient and his family state that the patient was recently admitted at [facility] from 02/19/2018 until 02/22/2018. The patient presented there with 1 week history of worsening generalized weakness. The family reported to the emergency department that until recently the patient had been very highly functioning and able to do multiple chores around the house and assist with his with several duties. Around September 2017 the patient took a trip to [place] and shortly afterwards was noted to have fatigue and increased weakness. Approximately 2 weeks ago patient fell at home and was taken to the emergency department where several x-rays were completed but found to be negative. The patient was also seen in outpatient cardiology on 02/[address] Ghanshyam Mcdonald and at that appointment he was changed from carvedilol to metoprolol and his dose of spironolactone was decreased. The patient reported swelling of his lower extremities and a feeling of heaviness associated with walking. The patient's family also stated that the patient has had poor appetite and felt as though his food is getting stuck in his throat. He has also noticed that he has had increasing abdominal distention but has not had any abdominal pain. The patient also has had constipation but not noticed any change in the caliber of his stools. He is also denied any blood in his stools. At [facility] the patient was initially treated for volume depletion and given IV hydration. The patient's Lasix and spironolactone were held. The patient was worked up for his constipation and had a normal abdominal x-ray with no evidence of obstruction. The patient had been placed on a bowel regimen and did have a bowel movement prior to being discharged. The patient also appeared to have no nausea or vomiting and was able to tolerate food prior to discharge. The patient was sent home with assistance and outpatient PT. The patient was told to continue to hold his Lasix and spironolactone. After discharge from [facility] just 3 days ago the patient has had a continued decline. According to the family the patient has had increased generalized weakness and lethargy. They state that he continues to have poor appetite and has not been able to keep anything down. They state that he continues to have nausea and has vomited. They also state that the patient has noticed that he has had increased abdominal distention and increasing lower extremity edema. The patient denies having any worsening shortness of breath but feels extremely fatigued and today was so weak that he could not even stand or get up out of bed. The patient's family finally decided to bring him back to the emergency department this time they brought him to [facility]. The patient denies any headaches, blurred vision, runny nose, cough, fevers, chills, chest pain, abdominal pain, diarrhea, urinary urgency, urinary frequency , dysuria, joint pain, muscle aches, joint swelling, back pain, neck stiffness, skin changes, rash, hair loss, polyuria, polydipsia, recent unintentional weight loss, black or bloody stools or any focal neurologic deficits. On presentation to the emergency department the patient was afebrile heart rate was in the high 80s, he was tachypneic but was saturating well on room air. The patient was slightly hypertensive on presentation and looked extremely weak and very fatigued. The patient's initial lab work was remarkable for a sodium of 127, chloride of 94 and a carbon dioxide of 20 with a BUN of 50. The patient 's urine was negative for infection. The patient initially underwent an x-ray of his chest which showed no acute disease. The emergency room physician examined the patient and noted that he had significant abdominal distention and signs of ascites on examination. The patient also had severe lower extremity edema. The emergency room physician ordered a CT of the patient's abdomen and pelvis the CT showed extensive peritoneal implants with large ascites. Ill- defined soft tissue density within the upper abdomen, retroperitoneum, pelvis and presacral region. These findings were consistent with extensive metastatic disease. There was also discrete enlarged subcarinal, epicardiac and retroperitoneal lymph nodes. The patient had bilateral mild hydronephrosis and hydroureter. These findings likely reflect some element of obstruction secondary to retroperitoneal soft tissue density. There was also irregular urinary bladder wall thickening. There was no evidence of bowel obstruction or intraperitoneal free air. The emergency room physician broken used to the patient and his family that he has metastatic cancer. The emergency room physician also performed a paracentesis which showed that the patient had significant WBCs and RBCs with 0% neutrophils and 81% other cells. The fluid was sent for cytology and is expected to be positive for malignancy. Given the patient's severe generalized weakness and dehydration it was determined that the patient would not be able to go home at this time and therefore was placed in observation for hydration, physical therapy and possible placement - HOSPITAL COURSE Hospital Course: The patient was admitted to the medical floor and his symptoms were managed. Palliative care was initially consulted however at this time the patient is requesting hospice services and home hospice care. He will be discharged home this morning and will follow-up with hospice this afternoon. - ALLERGIES Allergies/Adverse Reactions: Allergies Allergy/AdvReac Type Severity Reaction Status Date / Time No Known Drug Allergies Allergy Verified 02/27/18 15:11 - MEDICATIONS Home Medications: Ambulatory Orders Medication Instructions Recorded Confirmed Metoprolol Succinate [Toprol Xl] 50 mg PO DAILY 02/27/18 02/28/18 Apixaban [Eliquis] 5 mg PO BID 02/28/18 02/28/18 Furosemide [Furosemide] 80 mg PO BIDDIURETIC 02/28/18 02/28/18 Latanoprost [Latanoprost] 1 drops EACHEYE QPM 02/28/18 02/28/18 Levothyroxine [Synthroid] 125 mcg PO QDAC 02/28/18 02/28/18 Potassium Chloride [Klor-Con M20] 20 meq PO TIDWM 02/28/18 02/28/18 Spironolactone [Aldactone] 50 mg PO DAILY 02/28/18 02/28/18 - PHYSICAL EXAM AT DISCHARGE General Appearance: positive: No acute distress, Lethargic Eyes Bilateral: positive: Normal inspection, PERRL, EOMI, No lid inflammation, Conjunctivae nml ENT: positive: ENT inspection nml, Pharynx nml, No signs of dehydration Neck: positive: Nml inspection, Thyroid nml, No JVD, Trachea midline, Thyromegaly Respiratory: positive: Chest non-tender, No respiratory distress, Breath sounds nml. negative: Wheezes, Rales, Rhonchi Cardiovascular: positive: Regular rate & rhythm, No murmur, No gallop Peripheral Pulses: positive: 1+ Abdomen: positive: Non-tender, No organomegaly, Nml bowel sounds, Other ( Abdominal tissue is hard, not compliant). negative: Guarding, Rebound Back: positive: Nml inspection. negative: CVA tenderness (R), CVA tenderness (L ) Skin: positive: Color nml, No rash, Warm, Dry. negative: Cyanosis Extremities: positive: Non-tender, Full ROM, Nml appearance, No pedal edema Neurologic/Psychiatric: positive: Oriented x3, CN's nml (2-12), Motor nml, Sensation nml, Mood/affect nml - LABS Result Diagrams: 02/28/18 06:23 02/28/18 06:23 - DIAGNOSTIC IMAGING Diagnostic Imaging Results Comments: EXAM: CT ABDOMEN AND PELVIS EXAM DATE: 02/27/2018 04:51 PM. CLINICAL HISTORY: Abdominal pain COMPARISONS: None. TECHNIQUE: Routine helical CT imaging was performed through the abdomen and pelvis. IV contrast: ISOVUE 300 100mL. Enteric contrast: No. Reconstructions: Coronal and sagittal. In accordance with CT protocol optimization, one or more of the following dose reduction techniques were utilized for this exam: automated exposure control, adjustment of mA and/or KV based on patient size, or use of iterative reconstructive technique. FINDINGS: Lung Bases: There are enlarged subcarinal and pericardiac lymph nodes. Liver: Normal. No masses. Gallbladder/Bile Ducts: Unremarkable. Spleen: Normal. Pancreas: Normal. Adrenal Glands: Normal. Kidneys: There is bilateral hydronephrosis and urothelial enhancement. There is perinephric stranding. Peritoneal Cavity/Bowel: There is large volume ascites. Uterus thick-walled peripheral enhancement. There is diffuse nodularity of the mesentery. There is ill-defined confluent retroperitoneal soft tissue density which extends into the pelvis. No intraperitoneal free air. No evidence of bowel obstruction. There is colonic diverticulosis. Pelvic Organs: The urinary bladder demonstrates marked wall thickening. Vasculature: There are atheromatous calcifications of the aorta. No acute vascular abnormalities are seen. Bones: No significant abnormality. Other: None. IMPRESSION: 1. There are extensive peritoneal implants with large ascites. There is ill- defined soft tissue density within the upper abdomen, retroperitoneum, pelvis, and presacral region. Findings are consistent with extensive metastatic disease. 2. There are discrete enlarged subcarinal, epicardiac, and retroperitoneal lymph nodes. 3. There is bilateral mild hydronephrosis and hydroureter. This likely reflects some element of obstruction secondary to the retroperitoneal soft tissue density. 4. There is marked irregular urinary bladder wall thickening. 5. There is no evidence of bowel obstruction. There is colonic diverticulosis. There is no evidence of intraperitoneal free air. - FOLLOW UP Follow Up: Patient will be admitted to hospice care this afternoon. - TIME SPENT Time Spent in Discharge (Minutes): 40
== END 2018-03-02 11:42 | disposition home or self-care (01) | DRG 374 ==
LOC: EDUNIT# → ED 15:00 → OBS 19:48 → OBSVTOIN 02-28 15:07 → MS2 02-28 16:25
PROVIDERS: ADMIT Internal Medicine; ATTEND Hospitalist
PROC: 0W9G3ZX Drainage of Peritoneal Cavity, Percutaneous Approach, Diagnostic (ICD-10-PCS; principal; 2018-02-27)
DX: C78.6 Secondary malignant neoplasm of retroperitoneum and peritoneum (principal); G93.40 Encephalopathy, unspecified; C79.89 Secondary malignant neoplasm of other specified sites; R18.8 Other ascites; E87.2 Acidosis; E86.1 Hypovolemia; I48.2 Chronic atrial fibrillation; E87.1 Hypo-osmolality and hyponatremia; C80.1 Malignant (primary) neoplasm, unspecified; E86.0 Dehydration; Z51.5 Encounter for palliative care; B37.0 Candidal stomatitis; E78.5 Hyperlipidemia, unspecified; E03.9 Hypothyroidism, unspecified; I48.91 Unspecified atrial fibrillation; I11.0 Hypertensive heart disease with heart failure; Z87.891 Personal history of nicotine dependence; I50.9 Heart failure, unspecified; K59.09 Other constipation; G47.30 Sleep apnea, unspecified; Z66 Do not resuscitate; Z79.01 Long term (current) use of anticoagulants; Z85.46 Personal history of malignant neoplasm of prostate; Z91.81 History of falling
CPT/HCPCS: 36415; 49082; 71045; 74177; 80053; 81001; 81003; 81599; 82040; 82947; 83605; 83615; 83690; 83735; 83880; 84100; 84155; 84484; 85025; 85610; 88108; 88305; 88341; 88342; 88344; 89051; 93005; 96360; 96361; 99223; 99284; 99285

== ENCOUNTER 2018-03-02 11:42 | Outpatient (CLI) | payer MEDICARE, OTHER | END 2018-03-02 11:43 | disposition hospice, home (50) | LOC: EMS 11:42 | PROVIDERS: ATTEND Surgery | DX: R53.1 Weakness (principal) | CPT/HCPCS: A0425; A0428 ==